=== PATIENT | male | born 1960 | race Caucasian/White ===

== ENCOUNTER 2020-05-16 14:46 | Emergency (ER) | payer OTHER ==
[~2020-05-16] VITALS: Ht 175.3 cm; Wt 81.8 kg
[2020-05-16 14:49] VITALS: BP 137/87; TEMP 97
[2020-05-16 15:57] LABS: COLLECTION METHOD IN
[2020-05-16 16:07] LABS: MUCOUS Present /lpf; PH 6 (5-8); SQUAMOUS EPITHELIAL None Seen /hpf; URINE APPEARANCE Clear; URINE BACTERIA None Seen /hpf; URINE BILIRUBIN Negative (NEGATIVE); URINE BLOOD Negative (NEGATIVE); URINE COLOR Yellow; URINE GLUCOSE Negative (NEGATIVE); URINE KETONE Negative (NEGATIVE); URINE LEUKOCYTE ESTERASE Negative (NEGATIVE); URINE NITRATE Negative (NEGATIVE); URINE PROTEIN(semi-quant) Negative (NEGATIVE); URINE UROBILINOGEN Negative (NEGATIVE)
[2020-05-16] MEDS ORDERED: MACROBID 1100 MG/CAP PO (16:57)
[2020-05-16] MEDS ORDERED: FLOMAX 0.40.4 MG/CAP PO (16:57)
[2020-05-16 17:13] VITALS: PULSE 85
== END 2020-05-16 17:13 | disposition home or self-care (01) ==
LOC: COL.ER 14:46
PROVIDERS: Emergency Medicine
DX: R33.9 Retention of urine, unspecified (principal)